=== PATIENT | female | born 1995 | race Caucasian/White ===

== ENCOUNTER 2018-01-05 14:43 | Emergency (ER) | payer SELFPAY ==
[~2018-01-05] VITALS: Ht 170.2 cm; Wt 124.1 kg
[2018-01-05] MEDS ORDERED: LEXAPRO5 MG PO (15:15)
[2018-01-05] MEDS ORDERED: GLUCOPHAGE500 MG/TAB PO (15:15)
[2018-01-05] MEDS ORDERED: GOOD NEIGHBOR100 M7 PO (15:16)
[2018-01-05] MEDS ORDERED: DAILY MULTIPLE1 T18 PO (15:16)
[2018-01-05] MEDS ORDERED: PRENATAL FORMU1 EAC2 PO (15:16)
[2018-01-05] MEDS ORDERED: DHA PO (15:17)
[2018-01-05 15:36] LABS: EOS % 0.2 % (1.0-5.0); HEMATOCRIT 41.7 % (37.0-47.0); HEMOGLOBIN 13.9 g/dL (12.5-16.0); LYMPH# 1.7 (1.50-4.00); MEAN CELL VOLUME 83 fl (78-100); MEAN CORPUSCULAR HEMOGLOBIN 28 pg (27-31); MEAN CORPUSCULAR HGB CONC 33 g/dL (33-37); MEAN PLATELET VOLUME 9.3 fl (7.4-10.4); MONO # 0.7 (0.20-0.80); PLATELET COUNT 261 K/mm3 (130-400); WHITE BLOOD COUNT 11.4 K/mm3 (4.8-10.8)
[2018-01-05 15:48] LABS: ALBUMIN 4.1 g/dL (3.5-5.0); BUN/CREATININE RATIO 19.5 (6.0-26.0); CALCIUM 8.8 mg/dL (8.4-10.2); POTASSIUM 4.1 mmol/L (3.6-5.0); TOTAL BILIRUBIN 0.4 mg/dL (0.2-1.3); TOTAL PROTEIN 7.6 g/dL (6.3-8.2)
[2018-01-05] MEDS ORDERED: ZOFRAN ODT4 MG PO (16:07)
[2018-01-05 16:21] VITALS: BP 133/69
== END 2018-01-05 16:23 | disposition home or self-care (01) ==
LOC: ED 14:43
PROVIDERS: Family Medicine
DX: K29.70 Gastritis, unspecified, without bleeding (principal); E11.9 Type 2 diabetes mellitus without complications; Z79.84 Long term (current) use of oral hypoglycemic drugs; F32.9 Major depressive disorder, single episode, unspecified